=== PATIENT | male | born 1950 | race Caucasian/White ===

== ENCOUNTER 2019-02-16 13:05 | Emergency (ER) | payer MEDICARE, OTHER ==
[2019-02-16 13:36] LABS: ADD MAN DIFF? NO
[2019-02-16 13:38] LABS: BASOPHILS % 0.3 % (0.0-2.0); EOSINOPHILS # 0.2 10^3/ul (0.0-0.5); EOSINOPHILS % 1.2 % (0.0-7.0); HEMATOCRIT 41.1 % (42.0-52.0); HEMOGLOBIN 13.6 g/dl (14.0-18.0); LYMPHOCYTES # 2.8 10^3/ul (0.8-2.9); LYMPHOCYTES % 21.8 % (15.0-51.0); MEAN CORPUSCULAR HEMOGLOBIN 28.5 pg (29.0-33.0); MEAN CORPUSCULAR HGB CONC 33.1 g/dl (32.0-37.0); MEAN PLATELET VOLUME 8.7 fl (7.4-10.4); MONOCYTE # 0.8 10^3/ul (0.3-0.9); MONOCYTES % 6.2 % (0.0-11.0); NEUTROPHILS % 70.2 % (39.0-77.0); PLATELET COUNT 428 10^3/UL (140-415); RED BLOOD COUNT 4.78 10^6/ul (4.70-6.10); RED CELL DISTRIBUTION WIDTH 13.3 % (11.5-14.5)
[2019-02-16 13:38] LABS: WHITE BLOOD COUNT 12.9 10^3/ul (4.8-10.8)
[2019-02-16 14:00] LABS: ANION GAP 16 (5-13); BLOOD UREA NITROGEN 25 mg/dl (7-20); CARBON DIOXIDE 20 mmol/L (21-31); CHLORIDE 107 mmol/L (97-110); CREATININE 1.77 mg/dl (0.61-1.24); Estimated GFR 39 mL/min (>60); GLUCOSE 253 mg/dl (70-220); POTASSIUM 3.8 mmol/L (3.5-5.1); SODIUM 143 mmol/L (135-144)
[2019-02-16] MEDS: DEXAMETHASONE 10 MG/ML 1 ML INJ IV (14:01)
[2019-02-16] MEDS: FAMOTIDINE 20 MG TAB PO (14:02)
[2019-02-16] MEDS: hydrOXYzine HCL 25 MG TAB PO (14:02)
[2019-02-16 14:07] LABS: TROPONIN-I < 0.012 ng/ml (0.000-0.120)
[2019-02-16] MEDS ORDERED: ONDANSETRON 4 MG INJ IV (17:00)
[2019-02-16] MEDS ORDERED: ACETAMINOPHEN 325 MG TAB PO (17:00)
== END 2019-02-16 17:54 | disposition left against medical advice (07) ==
LOC: E/R 13:05
DX: L50.1 Idiopathic urticaria (principal); N28.9 Disorder of kidney and ureter, unspecified; I25.10 Atherosclerotic heart disease of native coronary artery without angina pectoris; I25.2 Old myocardial infarction; J44.9 Chronic obstructive pulmonary disease, unspecified; F17.210 Nicotine dependence, cigarettes, uncomplicated; Z79.82 Long term (current) use of aspirin; Z79.84 Long term (current) use of oral hypoglycemic drugs
CPT/HCPCS: 36415; 71045; 80048; 84484; 85025; 93005; 96374; 99285-25